=== PATIENT | male | born 1995 | race African-American/Black ===

== ENCOUNTER 2018-03-30 03:08 | Observation (INO) | payer OTHER ==
[2018-03-30] MEDS ORDERED: Mag-Al 1200 mg/1200 mg/30 ML UDCUP ONE (03:42)
[2018-03-30] MEDS ORDERED: Lidocaine Viscous Sol 2% 15 ml UD Cup ONE (03:42)
[2018-03-30 03:59] LABS: #Basophils 0.1 thou/uL (0.0-0.2); #Eosinphils 0.1 thou/uL (0.0-0.7); #Lymphocytes 2.7 thou/uL (1.20-3.40); #Monocytes 0.6 thou/uL (0.11-0.59); #Neutrophils 4.3 thou/uL (1.40-6.50); %Basophils 0.8 % (0.0-1.0); %Eosinophils 1.8 % (0.0-10.0); %Lymphocytes 34.9 % (21.0-51.0); %Monocytes 8.2 % (0.0-10.0); %Neutrophils 54.4 % (42.0-75.0); Hemoglobin 12.4 g/dL (14.0-18.0); Mean Corpuscular HGB CONC 32.9 g/dL (32.0-36.0); Mean Corpuscular Hemoglobin 30.3 pg (27.0-31.0); Mean Corpuscular Volume 92.1 fl (80.0-94.0); Mean Platelet Volume 9.7 fL (7.4-10.4); Platelet Count 198 thou/uL (130-400); Red Blood Cell (RBC) Count 4.09 mill/uL (4.70-6.10); White Blood Cell (WBC) Count 7.8 thou/uL (4.8-10.8)
[2018-03-30 04:23] LABS: ALT (SGPT) 29 U/L (8-55); AST (SGOT) 34 U/L (5-34); Albumin 4.6 g/dL (3.5-5.0); Alkaline Phosphatase 84 U/L (40-150); Anion Gap 13 mmol/L (10-20); BUN (Urea Nitrogen) 11 mg/dL (8.9-20.6); Bilirubin, Total 2.3 mg/dL (0.2-1.2); Calc. Creatinine Clearance 0 mL/min (70-130); Calcium 9.9 mg/dL (7.8-10.44); Carbon Dioxide 24 mmol/L (22-29); Chloride 106 mmol/L (98-107); Estimated GFR-MDRD Greater than 90; Globulin 3.2 g/dL (2.4-3.5); Glucose 121 mg/dL (70-105); Lipase 44 U/L (8-78); Potassium 3.8 mmol/L (3.5-5.1); Protein, Total 7.8 g/dL (6.0-8.3); Sodium 139 mmol/L (136-145)
[2018-03-30 04:28] LABS: Bilirubin Negative (Negative); Blood, Urine Negative (Negative); Clarity CLEAR (Clear); Glucose, Urine (Dipstick) Negative (Negative); Leukocyte Negative (Negative); Nitrite Negative (Negative); Protein, Urine (Dipstick) Negative (Neg-Trace); Specific Gravity, Urine 1.029 (1.002-1.036)
[2018-03-30 04:28] LABS: CKMB 0.4 ng/mL (0-6.6); Troponin I Less than 0.010 ng/mL (< 0.028)
[2018-03-30] MEDS ORDERED: Ondansetron ODT 4 MG TAB ONE (05:08)
[2018-03-30 06:08] LABS: Amphetamine Not Detected (NotDetected); Barbiturates Screen Not Detected (NotDetected); Benzodiazepine Screen Not Detected (NotDetected); Cocaine Metabolite Screen Not Detected (NotDetected); Medtox Control Line Valid? VALID (VALID); Medtox Reader # READER 4; Methadone Not Detected (NotDetected); Methamphetamine Not Detected (NotDetected); Opiate Screen Not Detected (NotDetected); Oxycodone Screen Not Detected (NotDetected); Phencyclidine (PCP) Not Detected (NotDetected); THC/Cannabinoid Screen Not Detected (NotDetected); Tricyclic Screen Not Detected (NotDetected)
[2018-03-30] MEDS ORDERED: MEROPENEM 1 GM/50 ML 1 GM in Premix Bag 1 BAG IVPB SCH (07:30)
--- NOTE | 2018-03-30 07:45 | RAD ---
CHEST 1 VIEW AND ABDOMEN 2 VIEWS: Date: 03/30/18 HISTORY: Abdominal pain, occasional vomiting. FINDINGS/IMPRESSION: The heart size is normal. The lungs are clear. No free air or differential fluid levels are seen. The bowel gas pattern is unremarkable. No suspicious calcifications are identified. POS: [facility]
[2018-03-30] MEDS ORDERED: Ondansetron HCl/PF 4 MG/2 ML Vial IVP PRN ×3 (09:56→15:28)
[2018-03-30] MEDS ORDERED: Acetaminophen 1,000 MG in Premix Bag 1 BAG IVPB PRN (09:57)
[2018-03-30] MEDS ORDERED: D5 1/2 NS w/20 mEq KCL 1,000 ML IV SCH (10:00)
--- NOTE | 2018-03-30 10:06 | HP ---
CHIEF COMPLAINT: Right upper quadrant pain. HISTORY OF PRESENT ILLNESS: This is a 22-year-old male who presents with a few week history of inter mittent right upper quadrant pain, it became more severe last night, described as 8/10, sharp, epigas tric, right upper quadrant, associated with nausea, no vomiting, no change in stools. No history of chronic abdominal pain. No prior history of known gallstones, jaundice, pancreatitis. Ultrasound sh ows gallstones and borderline wall thickening. He has an elevated total bilirubin. PAST MEDICAL HISTORY: He denies. PAST SURGICAL HISTORY: Denies. MEDICINES TAKEN DAILY: None. ALLERGIES: No known drug allergies. SOCIAL HISTORY: He quit smoking 2 weeks ago. He drinks alcohol most days of the week. No other joey gs. REVIEW OF SYSTEMS: Ten system review of systems otherwise negative unless described above. PHYSICAL EXAMINATION: HEENT: Sclerae are anicteric. Oropharynx clear. NECK: No lymphadenopathy. LUNGS: Clear. HEART: Regular rate and rhythm. ABDOMEN: Soft. He is tender in the epigastric and right upper quadrant without guarding or rebound. No abdominal hernias. EXTREMITIES: No ischemia or edema to extremities. LABORATORY AND X-RAY FINDINGS: Ultrasound shows gallstones, borderline wall thickening. White count 7, hemoglobin 12, platelet count is 198. Sodium 139, potassium 3.8, creatinine is 0.79. ASSESSMENT: Acute cholecystitis with elevated bilirubin at 2.3. PLAN: Laparoscopic cholecystectomy and intraoperative cholangiogram. Risks, benefits discussed. He gives consent. We will do this today.
--- NOTE | 2018-03-30 11:04 | ULT ---
PRELIMINARY REPORT/[facility]/EMERGENCY AFTER HOURS PROCEDURE: EXAM: US Abdomen Limited, Right Upper Quadrant EXAM DATE/TIME: 03/30/2018 5:25 AM CLINICAL HISTORY: 22 years old, male; Pain and signs and symptoms; Nausea and vomiting; Abdominal pain; Epigastric TECHNIQUE: Real-time ultrasound of the abdomen with image documentation. Examination is focused on the right upper quadrant. COMPARISON: No relevant prior studies available. FINDINGS: Liver: Normal. No masses. Gallbladder: Sludge and gallstones noted. Pericholecystic fluid and minimal gallbladder wall thickeni ng. Positive sonographic Bullock's sign Common bile duct: Borderline dilated common bile duct measuring 5.7 mm. No definite choledocholithias is Pancreas: Not well visualized Right kidney: Normal. No mass. No hydronephrosis. IMPRESSION: Findings suspect for acute cholecystitis Borderline dilated common bile duct without definite choledocholithiasis Thank you for allowing us to participate in the care of your patient. Dictated and Authenticated by: Casey Interiano MD 03/30/2018 6:56 AM Central Time ([place] & [place]) FINAL REPORT RIGHT UPPER QUADRANT ULTRASOUND: Date: 03/30/18 FINDINGS/IMPRESSION: I agree with the preliminary report given by Malorie. POS: [facility]
[2018-03-30] MEDS ORDERED: Fentanyl 250 MCG/5 ML VIAL ONE (13:26)
[2018-03-30] MEDS ORDERED: Midazolam HCl 2 mg/2 ml Vial ONE ×2 (13:26→13:44)
[2018-03-30] MEDS ORDERED: Bupivacaine/Epinephrine 0.25% 30 ML VIAL ONE (13:32)
[2018-03-30] MEDS ORDERED: Iothalamate Meglumine 60% 50 ML VIAL FS ONE ×2 (13:32→14:52)
[2018-03-30 14:14] VITALS: BMI 29.0
[2018-03-30] MEDS ORDERED: Indomethacin 50 MG SUPP ONE (14:54)
[2018-03-30] MEDS ORDERED: Dextrose 5% in Water 1,000 ML IV PRN (15:10)
[2018-03-30] MEDS ORDERED: HYDROcodone/Acetaminophen 10/325 mg Tablet PO PRN ×2 (15:10)
[2018-03-30] MEDS ORDERED: Dextrose 50% Abboject 50 ML SYRINGE SLOW IVP PRN (15:10)
[2018-03-30] MEDS ORDERED: Morphine 4 MG/ML VIAL SLOW IVP PRN (15:10)
[2018-03-30] MEDS ORDERED: Mag-Al 1200 mg/1200 mg/30 ML UDCUP PO PRN (15:10)
[2018-03-30] MEDS ORDERED: Promethazine HCl 25 MG/ML VIAL IM PRN ×2 (15:10→15:28)
[2018-03-30] MEDS ORDERED: Calcium Carbonate 500 MG ChewTAB PO PRN (15:10)
[2018-03-30] MEDS ORDERED: hydrALAZINE 20 MG/ML VIAL SLOW IVP PRN (15:10)
[2018-03-30] MEDS ORDERED: Promethazine HCl 25 MG/ML VIAL SLOW IVP PRN (15:28)
--- NOTE | 2018-03-30 15:52 | CON ---
DATE OF CONSULTATION: 03/30/2018 HISTORY OF PRESENT ILLNESS: The patient is a 22-year-old gentleman who was admitted for symptomatic biliary colic. He underwent intraoperative cholangiogram which showed a filling defect. His liver f unction tests were significant for total bilirubin of 2.3 with a normal AST, ALT and alkaline phospha tase. Presently, the patient was started on anesthetic and he does not add anything to history of pr esent illness. PAST MEDICAL HISTORY: Negative. PAST SURGICAL HISTORY: Negative. MEDICATIONS: None. ALLERGIES: No known medical allergies. SOCIAL HISTORY: He stopped smoking 2 weeks ago. Drinks a few drinks every day. FAMILY HISTORY: Negative for GI or liver disease. REVIEW OF SYSTEMS: Unobtainable. PHYSICAL EXAMINATION: GENERAL: Shows an intubated male in no acute distress. VITAL SIGNS: Temperature 98.2, pulse 78, respiratory rate 16, blood pressure 147/65. CHEST: Clear. CARDIOVASCULAR: Regular rate and rhythm. ABDOMEN: Benign. LABORATORY DATA: Shows a CBC with a hemoglobin 12.4, hematocrit 37.6. Abdominal ultrasound shows fi ndings are suspicious for acute cholecystitis, borderline dilated common bile duct. Intraoperative c holangiogram was reviewed and is presently not available on the radiology reviewing system. ASSESSMENT: Choledocholithiasis by intraoperative cholangiogram. RECOMMENDATIONS: ERCP.
[2018-03-30] MEDS ORDERED: Ondansetron HCl/PF 4 MG/2 ML Vial ONE (15:56)
[2018-03-30] MEDS ORDERED: Dexamethasone 20 MG/5 ML VIAL ONE (15:56)
[2018-03-30] MEDS ORDERED: PROPOFOL 200 MG/20 ML VIAL ONE (15:56)
[2018-03-30] MEDS ORDERED: Glycopyrrolate 0.2 MG/ML 5 ML SYRINGE ONE (15:56)
[2018-03-30] MEDS ORDERED: Lidocaine 1% PF 5 ML VIAL ONE (15:56)
--- NOTE | 2018-03-30 16:04 | OP ---
PREOPERATIVE DIAGNOSIS: Choledocholithiasis by intraoperative cholangiogram. PROCEDURE IN DETAIL: After informed consent was obtained, the patient placed in left lateral decubit us position. Anesthesia was administered per the Anesthesia Department. Side-viewing endoscope was inserted into the esophagus under direct visualization with ease and passed to the second portion of the duodenum with ease. Second portion of the duodenum and duodenal bulb were normal. The ampulla w as normal. A taper tipped cannula was inserted into the common duct and cholangiogram was poor visua lization, but otherwise normal. The duct seemed somewhat prominent. A sphincterotomy was performed and the duct was swept with a 9-mm balloon twice. No stones were seen, and the balloon passed easily through the ampullary area. ASSESSMENT: 1. Prominent common bile duct with poor visualization on cholangiogram. 2. Status post sphincterotomy, stone extraction. RECOMMENDATIONS: 1. Recheck LFTs. 2. Other postop orders per Dr. Olvera.
--- NOTE | 2018-03-30 16:10 | RAD ---
OPERATIVE CHOLANGIOGRAM TWO VIEWS: 03/30/18 HISTORY: Intraoperative film. There is filling of a nondilated common duct. There is a nonopacification which may represent a filli ng defect of the distal common duct. There is no proximal dilatation. IMPRESSION: Questionable filling defect of the distal common duct. It could represent an air bubble or small ston e. It could also be incomplete filling of the duct in this area. POS: [facility]
[2018-03-30] MEDS: Sodium Chloride 0.9% 1,000 ML IV SCH (19:04)
--- NOTE | 2018-03-30 20:04 | OP ---
DATE OF PROCEDURE: 03/30/2018 PREOPERATIVE DIAGNOSIS: Acute cholecystitis with elevated liver function test. POSTOPERATIVE DIAGNOSIS: Acute cholecystitis with elevated liver function test. PROCEDURE: Laparoscopic cholecystectomy with intraoperative cholangiogram. SURGEON: Hira Olvera M.D. ANESTHESIA: General. ESTIMATED BLOOD LOSS: None. COMPLICATIONS: None. SPECIMEN: Gallbladder. FINDINGS: Distal common bile duct stone, nonobstructive. TECHNIQUE: The patient was taken to the operating room and placed supine on the table. After genera l anesthetic was obtained, the abdomen was shaved, prepped, and draped in a sterile fashion. Curved incision was made below the umbilicus. Cautery was used to dissect down to and score the fascia. Abd ominal cavity entered bluntly using a Sheila clamp. Holding stitch of PDS was placed on each side of the fascia. Cotton trocar was placed. High-flow pneumoperitoneum was obtained. An upper midline 5- mm port and two right upper quadrant 5-mm ports were placed under direct visualization. Gallbladder was retracted from the gallbladder fossa. Peritoneum was opened anteriorly and posteriorly. Critica l view triangle was seen showing only the cystic duct and cystic artery branching medial to lateral, no other branching structures. Clip was placed high on the cystic duct and a small ductotomy was mad e just proximal to that. A cholangiogram was brought in through a separate stab incision. A cholang iogram was performed which does show contrast flow into the duodenum, but there is a distal common bi le duct stones not completely obstructing. Good filling of the right and left hepatic duct system. Cholangiocatheter was removed. Three clips were placed proximally on the cystic duct, cystic duct cu t using laparoscopic scissors. Cystic artery was taken using two clips proximally and one clip dista lly, cut using laparoscopic scissors. Dissected the gallbladder using cautery. Gallbladder was plac ed in EndoCatch bag and brought out through the Cotton. There was no bleeding or bile in the liver b ed. No injury to any sharp structures. All port sites were infiltrated using local anesthetic. All ports were removed under camera visualization. Pneumoperitoneum was let down. PDS was used to clos e the fascia below the umbilicus. All incisions were irrigated and closed using 4-0 Monocryl and Rich mabond. The patient is going to have ERCP immediately under same anesthesia. Dr. Kemp has been noti fied.
[2018-03-30] MEDS: Docusate 100 MG CAP PO SCH (20:16)
[2018-03-30] MEDS: Famotidine 20 MG TAB PO SCH (20:16)
[2018-03-30] MEDS ORDERED: Famotidine/PF 20 mg/2ml Vial SLOW IVP SCH (21:00)
[2018-03-30] MEDS: cefOXitin 2 GM in Sodium Chloride 0.9% 100 ML IVPB SCH (22:22)
[2018-03-31] MEDS: Sodium Chloride 0.9% 1,000 ML IV SCH (00:41)
[2018-03-31 04:37] VITALS: BP 119/66; TEMP 98.3
[2018-03-31] MEDS: cefOXitin 2 GM in Sodium Chloride 0.9% 100 ML IVPB SCH (05:24)
[2018-03-31 05:46] LABS: #Lymphocytes 0.9 thou/uL (1.20-3.40); #Monocytes 0.4 thou/uL (0.11-0.59); #Neutrophils 7.7 thou/uL (1.40-6.50); %Basophils 0.1 % (0.0-1.0); %Eosinophils 0.1 % (0.0-10.0); %Lymphocytes 9.9 % (21.0-51.0); %Monocytes 4.9 % (0.0-10.0); Hemoglobin 11.5 g/dL (14.0-18.0); Mean Corpuscular HGB CONC 33.4 g/dL (32.0-36.0); Mean Corpuscular Hemoglobin 30.6 pg (27.0-31.0); Mean Corpuscular Volume 91.7 fl (80.0-94.0); Mean Platelet Volume 8.7 fL (7.4-10.4); Platelet Count 192 thou/uL (130-400); RBC Distribution Width 11.6 % (11.5-14.5); Red Blood Cell (RBC) Count 3.76 mill/uL (4.70-6.10); White Blood Cell (WBC) Count 9.1 thou/uL (4.8-10.8)
[2018-03-31 06:00] LABS: ALT (SGPT) 36 U/L (8-55); AST (SGOT) 26 U/L (5-34); Alkaline Phosphatase 74 U/L (40-150); Anion Gap 8 mmol/L (10-20); BUN (Urea Nitrogen) 7 mg/dL (8.9-20.6); Bilirubin, Total 1.7 mg/dL (0.2-1.2); Calc. Creatinine Clearance 169 mL/min (70-130); Calcium 9.1 mg/dL (7.8-10.44); Carbon Dioxide 26 mmol/L (22-29); Chloride 110 mmol/L (98-107); Estimated GFR-MDRD Greater than 90; Globulin 2.8 g/dL (2.4-3.5); Glucose 153 mg/dL (70-105); Lipase 15 U/L (8-78); Potassium 4.1 mmol/L (3.5-5.1); Protein, Total 6.8 g/dL (6.0-8.3); Sodium 140 mmol/L (136-145)
[2018-03-31] MEDS: Famotidine 20 MG TAB PO SCH (07:53)
[2018-03-31] MEDS: Docusate 100 MG CAP PO SCH (07:54)
--- NOTE | 2018-03-31 12:42 | DIS ---
ADMIT DIAGNOSIS: Acute cholecystitis. DISCHARGE DIAGNOSIS: Acute cholecystitis. PROCEDURES: Laparoscopic cholecystectomy by Dr. Olvera without complication, ERCP, sphincterotomy b y Dr. Kemp without complication. CONDITION AT DISCHARGE: Improved. STAFF: Dr. Hira Olvera. HOSPITAL COURSE: The patient was admitted, found to have a stone in the common bile duct, underwent a postop ERCP. On postop day #1 he is doing well. He is tolerating diet, he is ambulatory. His nitin n is controlled. He is being discharged home. He will follow up with me in 2 weeks.
== END 2018-03-31 12:23 | disposition home or self-care (01) ==
LOC: ERS 03:08 → SJJU 09:37
PROVIDERS: ADMIT Surgery; ATTEND Surgery
PROC: 0FT44ZZ Resection of Gallbladder, Percutaneous Endoscopic Approach (ICD-10-PCS; principal; 2018-03-30)
PROC: BF101ZZ Fluoroscopy of Bile Ducts using Low Osmolar Contrast (ICD-10-PCS; 2018-03-30)
PROC: 0F798ZZ Dilation of Common Bile Duct, Via Natural or Artificial Opening Endoscopic (ICD-10-PCS; 2018-03-30)
PROC: 0FC98ZZ Extirpation of Matter from Common Bile Duct, Via Natural or Artificial Opening Endoscopic (ICD-10-PCS; 2018-03-30)
DX: K80.66 Calculus of gallbladder and bile duct with acute and chronic cholecystitis without obstruction (principal); Z87.891 Personal history of nicotine dependence
CPT/HCPCS: 36415; 47532; 74022; 74330; 76705; 80053; 80306; 81003; 82553; 83690; 84484; 85025; 88304; 93005; 96361; 96365; 96366; 96367; 96372; 96375; 96376; G0378; J0694; J1100; J1610; J2001; J2185; J2250; J2270; J2405; J2550; J2704; J3010; J7050; Q0162; Q9961

== ENCOUNTER 2018-06-19 23:16 | Emergency (ER) | payer OTHER ==
[2018-06-19 23:42] LABS: #Basophils 0.1 thou/uL (0.0-0.2); #Eosinphils 0.1 thou/uL (0.0-0.7); #Lymphocytes 2.4 thou/uL (1.20-3.40); #Monocytes 0.5 thou/uL (0.11-0.59); #Neutrophils 4.2 thou/uL (1.40-6.50); %Basophils 0.8 % (0.0-1.0); %Eosinophils 1.8 % (0.0-10.0); %Lymphocytes 32.4 % (21.0-51.0); %Monocytes 7.3 % (0.0-10.0); %Neutrophils 57.7 % (42.0-75.0); Hemoglobin 12.4 g/dL (14.0-18.0); Mean Corpuscular HGB CONC 33.2 g/dL (32.0-36.0); Mean Corpuscular Hemoglobin 30.5 pg (27.0-31.0); Mean Corpuscular Volume 91.9 fL (78.0-98.0); Mean Platelet Volume 8.7 fL (7.4-10.4); Platelet Count 211 thou/uL (130-400); RBC Distribution Width 12.3 % (11.5-14.5); Red Blood Cell (RBC) Count 4.08 mill/uL (4.70-6.10); White Blood Cell (WBC) Count 7.3 thou/uL (4.8-10.8)
[2018-06-20 00:01] LABS: Bilirubin Negative (Negative); Blood, Urine Negative (Negative); Clarity CLEAR (Clear); Glucose, Urine (Dipstick) Negative (Negative); Leukocyte Negative (Negative); Nitrite Negative (Negative); Protein, Urine (Dipstick) Negative (Neg-Trace); Urobilinogen 0.2 mg/dL (0.2-1.0); pH, Urine 7.5 (5.0-9.0)
[2018-06-20 00:06] LABS: ALT (SGPT) 25 U/L (8-55); AST (SGOT) 21 U/L (5-34); Albumin 4.7 g/dL (3.5-5.0); Alkaline Phosphatase 88 U/L (40-150); Anion Gap 13 mmol/L (10-20); BUN (Urea Nitrogen) 9 mg/dL (8.9-20.6); Bilirubin, Total 2.1 mg/dL (0.2-1.2); Calc. Creatinine Clearance 0 mL/min (70-130); Calcium 9.9 mg/dL (7.8-10.44); Carbon Dioxide 25 mmol/L (22-29); Chloride 105 mmol/L (98-107); Estimated GFR-MDRD Greater than 90; Globulin 3.4 g/dL (2.4-3.5); Glucose 103 mg/dL (70-105); Lipase 36 U/L (8-78); Protein, Total 8.1 g/dL (6.0-8.3); Sodium 139 mmol/L (136-145)
[2018-06-20] MEDS ORDERED: Lidocaine Viscous Sol 2% 15 ml UD Cup ONE (01:20)
[2018-06-20] MEDS ORDERED: Mag-Al 1200 mg/1200 mg/30 ML UDCUP ONE (01:20)
[2018-06-20] MEDS ORDERED: Ketorolac Tromethamine 30 MG/ML VIAL ONE (01:50)
--- NOTE | 2018-06-20 08:43 | CT ---
PRELIMINARY REPORT/[facility]/EMERGENTY AFTER-HOURS PROCEDURE CT Abdomen and Pelvis With Intravenous Contrast EXAM DATE/TIME: 06/20/2018 12:47 AM CLINICAL HISTORY: 22 years old, male; Pain; Abdominal pain; Localized; Right upper quadrant (ruq); Prior surgery; Patie nt HX: Patient reports having abd pain/epigastric pain for 3-4 days now. Denies any other symptoms; S urgical HX of gallblader removal TECHNIQUE: Axial computed tomography images of the abdomen and pelvis with intravenous contrast. Coronal reformatted images were created and reviewed. COMPARISON: No relevant prior studies available. FINDINGS: Lower thorax: No acute findings. ABDOMEN: Liver: Normal. No mass. Gallbladder and bile ducts: Prior cholecystectomy. Pancreas: Normal. No ductal dilation. Spleen: Normal. No splenomegaly. Adrenals: Normal. No mass. Kidneys and ureters: Normal. No hydronephrosis. Stomach and bowel: No bowel wall thickening or intestinal obstruction. Appendix: Normal appendix. PELVIS: Bladder: Unremarkable as visualized. Reproductive: Unremarkable as visualized. ABDOMEN and PELVIS: Intraperitoneal space: Normal. No free air. No significant fluid collection. Bones/joints: No acute fracture. No dislocation. Soft tissues: Unremarkable. Vasculature: Normal. No abdominal aortic aneurysm. Lymph nodes: Normal. No enlarged lymph nodes. IMPRESSION: No acute findings. Thank you for allowing us to participate in the care of your patient. Dictated and Authenticated by: Ankush Cantu MD 06/20/2018 1:17 AM Central Time ([place] & [place]) FINAL REPORT CT ABDOMEN AND PELVIS WITH CONTRAST: HISTORY: Abdominal pain and epigastric pain. COMPARISON: Gallbladder ultrasound 03/30/15. FINDINGS: Lung bases are clear. No pericardial effusion. Prior cholecystectomy. Appendix is normal. The kid neys are unremarkable. No free intraperitoneal gas or fluid. IMPRESSION: Findings and impression are concordant with the preliminary report. POS: [facility]
[2018-06-20] MEDS ORDERED: ISOVUE-370 76%-LOCM 1 ML ONE (09:59)
== END 2018-06-20 01:59 | disposition home or self-care (01) ==
LOC: ERS 23:16
DX: R10.13 Epigastric pain (principal); Z87.891 Personal history of nicotine dependence
CPT/HCPCS: 36415; 74177; 80053; 81003; 83690; 85025; 96361; 96374; J1885